=== PATIENT | female | born 1960 | race Caucasian/White ===

== ENCOUNTER 2017-09-20 13:37 | Observation (INO) | payer OTHER ==
[2017-09-20] MEDS ORDERED: Ketorolac INJ* 30 MG/ML 1 ML VIAL IV ONE (13:49)
[2017-09-20] MEDS ORDERED: NS 0.9% 1000 ML* 1,000 ML IV ONE (13:49)
[2017-09-20 15:11] LABS: ABS Basophils 0 10^3/ul (0-0.2); ABS Eosinophils 0.1 10^3/ul (0-0.6); ABS Lymphocytes 1.5 10^3/ul (1.0-4.8); ABS Monocytes 0.2 10^3/ul (0-0.8); ABS Neutrophils 3.1 10^3/ul (1.5-7.7); ABS Nucleated RBC 0 10^3/ul; Eosinophil % 2.2 % (0-6); Hematocrit 41 % (35-47); Hemoglobin 13.8 g/dl (12.0-16.0); Lymphocyte % 30.5 % (25-47); Mean Corpuscular HGB Conc 34 g/dl (31-36); Mean Corpuscular Hemoglobin 30 pg (27-31); Mean Corpuscular Volume 89 fL (80-97); Mean Platelet Volume 7.4 um3 (7.4-10.4); Nucleated Red Blood Cells % 0; Platelet Count 185 10^3/ul (150-450); Red Blood Count 4.59 10^6/ul (4.0-5.4); Red Cell Distribution Width 14 % (10.5-15)
[2017-09-20 15:48] LABS: EGFR Non-African American 58.2 (>60)
[2017-09-20 15:50] LABS: INR 0.92 (0.77-1.02)
[2017-09-20 18:10] LABS: Urine Appearance Clear; Urine Blood Negative (Negative); Urine Color Straw; Urine Ketones Negative (Negative); Urine Protein Negative (Negative); Urine Specific Gravity 1.013 (1.010-1.030); Urine Urobilinogen Negative (Negative)
[2017-09-20] MEDS ORDERED: KCL 20 MEQ/100 ML IVPREMIX* 20 MEQ/100 ML BAG IV ONE (18:42)
[2017-09-20] MEDS ORDERED: Morphine INJ* 2 MG/ML 1 ML CARPUJECT IV PRN (19:10)
[2017-09-20] MEDS ORDERED: Acetaminophen TAB* 325 MG PO PRN (19:10)
--- NOTE | 2017-09-20 19:14 | ED ---
Ky Kennedy Stephanie, scribed for Vern Patel on 09/20/17 at 1701 . Back Pain - HPI Summary HPI Summary: The pt is a 57 y/o F presenting to the ED with c/o R flank pain that began on . Symptoms include lower back pain and cough. She denies hematuria. Her pain is rated as a 3 in severity. - History of Current Complaint Chief Complaint: EDFlankPain Stated Complaint: FLANK PAIN-DR SENT KIDNEY STONES Time Seen by Provider: 09/20/17 16:43 Hx Obtained From: Patient Hx Last Menstrual Period: 07/13/14 Onset/Duration: Sudden Onset, Lasting Days - 2, Still Present Onset/Duration: Started Days Ago - 2, Still Present Timing: Constant Back Pain Location: Is Discrete @ - R flank Severity Currently: Mild Pain Intensity: 4 Pain Scale Used: 0-10 Numeric Aggravating Symptom(s): Movement Alleviating Symptom(s): Rest Associated Signs And Symptoms: Positive: Flank Pain, Other - back pain, cough - Allergies/Home Medications Allergies/Adverse Reactions: Allergies Allergy/AdvReac Type Severity Reaction Status Date / Time No Known Allergies Allergy Verified 09/01/15 12:44 Home Medications: Home Medications NK [No Home Medications Reported] 09/20/17 [History Confirmed 09/20/17] PMH/Surg Hx/FS Hx/Imm Hx Sensory History: Denies: Hx Legally Blind EENT History: Denies: Hx Deafness - Surgical History Surgery Procedure, Year, and Place: x2; tubal ligation; lisa Infectious Disease History: No Infectious Disease History: Reports: Hx Shingles Denies: Hx Clostridium Difficile, Hx Hepatitis, Hx Human Immunodeficiency Virus (HIV), Hx of Known/Suspected MRSA, Hx Tuberculosis, Hx Known/Suspected VRE , Hx Known/Suspected VRSA, History Other Infectious Disease, Traveled Outside the [place] in Last 30 Days - Family History Known Family History: Negative: Renal Disease - Social History Occupation: Employed Full-time Lives: With Family Alcohol Use: Weekly Alcohol Amount: once weekly Hx Substance Use: No Substance Use Type: Reports: None Hx Tobacco Use: No Smoking Status (MU): Never Smoked Tobacco Have You Smoked in the Last Year: No Review of Systems Negative: Fever Positive: Cough Positive: flank pain. Negative: hematuria Positive: Other - back pain All Other Systems Reviewed And Are Negative: Yes Physical Exam - Summary Physical Exam Summary: Appearance: Well appearing, no pain distress Skin: warm, dry, reflects adequate perfusion Head/face: normal Eyes: EOMI, OLIVIER ENT: normal Neck: supple, non-tender Respiratory: CTA, breath sounds present Cardiovascular: RRR, pulses symmetrical Abdomen: RUQ tenderness, soft Bowel: present Musculoskeletal: normal, strength/ROM intact Neuro: normal, sensory motor intact, A&Ox3 Triage Information Reviewed: Yes Vital Signs On Initial Exam: Initial Vitals Temp Pulse Resp BP Pulse Ox 98.2 F 77 16 149/83 99 09/20/17 13:40 09/20/17 13:40 09/20/17 13:40 09/20/17 13:40 09/20/17 13:40 Vital Signs Reviewed: Yes Diagnostics - Vital Signs Vital Signs Temp Pulse Resp BP Pulse Ox 09/20/17 16:03 97.6 F 64 16 157/71 100 09/20/17 13:40 98.2 F 77 16 149/83 99 - Laboratory Lab Results: Lab Results 09/20/17 09/20/17 09/20/17 Range/Units 14:54 14:54 14:54 WBC 5.0 (3.5-10.8) 10^3/ul RBC 4.59 (4.0-5.4) 10^6/ul Hgb 13.8 (12.0-16.0) g/dl Hct 41 (35-47) % MCV 89 (80-97) fL MCH 30 (27-31) pg MCHC 34 (31-36) g/dl RDW 14 (10.5-15) % Plt Count 185 (150-450) 10^3/ul MPV 7.4 (7.4-10.4) um3 Neut % (Auto) 62.0 (38-83) % Lymph % (Auto) 30.5 (25-47) % Rankin % (Auto) 4.3 (0-7) % Eos % (Auto) 2.2 (0-6) % Baso % (Auto) 1.0 (0-2) % Absolute Neuts (auto) 3.1 (1.5-7.7) 10^3/ul Absolute Lymphs (auto) 1.5 (1.0-4.8) 10^3/ul Absolute Monos (auto) 0.2 (0-0.8) 10^3/ul Absolute Eos (auto) 0.1 (0-0.6) 10^3/ul Absolute Basos (auto) 0 (0-0.2) 10^3/ul Absolute Nucleated RBC 0 10^3/ul Nucleated RBC % 0 INR (Anticoag Therapy) (0.77-1.02) Sodium 145 (139-145) mmol/L Potassium 3.2 L (3.5-5.0) mmol/L Chloride 107 (101-111) mmol/L Carbon Dioxide 29 (22-32) mmol/L Anion Gap 9 (2-11) mmol/L BUN 18 (6-24) mg/dL Creatinine 0.99 H (0.51-0.95) mg/dL Est GFR ( Amer) 74.9 (>60) Est GFR (Non-Af Amer) 58.2 (>60) BUN/Creatinine Ratio 18.2 (8-20) Glucose 113 H (70-100) mg/dL Lactic Acid 1.0 (0.5-2.0) mmol/L Calcium 9.2 (8.6-10.3) mg/dL Total Bilirubin 0.50 (0.2-1.0) mg/dL AST 21 (13-39) U/L ALT 20 (7-52) U/L Alkaline Phosphatase 72 (34-104) U/L C-Reactive Protein 5.22 H (< 5.00) mg/L Total Protein 7.0 (6.4-8.9) g/dL Albumin 4.2 (3.2-5.2) g/dL Globulin 2.8 (2-4) g/dL Albumin/Globulin Ratio 1.5 (1-3) 09/20/17 Range/Units 14:54 WBC (3.5-10.8) 10^3/ul RBC (4.0-5.4) 10^6/ul Hgb (12.0-16.0) g/dl Hct (35-47) % MCV (80-97) fL MCH (27-31) pg MCHC (31-36) g/dl RDW (10.5-15) % Plt Count (150-450) 10^3/ul MPV (7.4-10.4) um3 Neut % (Auto) (38-83) % Lymph % (Auto) (25-47) % Rankin % (Auto) (0-7) % Eos % (Auto) (0-6) % Baso % (Auto) (0-2) % Absolute Neuts (auto) (1.5-7.7) 10^3/ul Absolute Lymphs (auto) (1.0-4.8) 10^3/ul Absolute Monos (auto) (0-0.8) 10^3/ul Absolute Eos (auto) (0-0.6) 10^3/ul Absolute Basos (auto) (0-0.2) 10^3/ul Absolute Nucleated RBC 10^3/ul Nucleated RBC % INR (Anticoag Therapy) 0.92 (0.77-1.02) Sodium (139-145) mmol/L Potassium (3.5-5.0) mmol/L Chloride (101-111) mmol/L Carbon Dioxide (22-32) mmol/L Anion Gap (2-11) mmol/L BUN (6-24) mg/dL Creatinine (0.51-0.95) mg/dL Est GFR ( Amer) (>60) Est GFR (Non-Af Amer) (>60) BUN/Creatinine Ratio (8-20) Glucose (70-100) mg/dL Lactic Acid (0.5-2.0) mmol/L Calcium (8.6-10.3) mg/dL Total Bilirubin (0.2-1.0) mg/dL AST (13-39) U/L ALT (7-52) U/L Alkaline Phosphatase (34-104) U/L C-Reactive Protein (< 5.00) mg/L Total Protein (6.4-8.9) g/dL Albumin (3.2-5.2) g/dL Globulin (2-4) g/dL Albumin/Globulin Ratio (1-3) Result Diagrams: 09/20/17 14:54 09/20/17 14:54 Lab Statement: Any lab studies that have been ordered have been reviewed, and results considered in the medical decision making process. Back Pain Course/Dx - Course Course Of Treatment: The pt is a 57 y/o F presenting to the ED with c/o R flank pain that began on 09/20/17. Symptoms include lower back pain and cough. She denies hematuria. Her pain is rated as a 3 in severity. At 18:30, ED physician spoke to Dr. Perales wants the pt to be admitted to the hospital. Dr. Orta accepted the pt for admission. - Diagnoses Differential Diagnosis/HQI/PQRI: Positive: Renal Colic, Sprain, Other - uti Provider Diagnoses: Renal calculi - Provider Notifications Discussed Care Of Patient With: Pratik Perales Time Discussed With Above Provider: 18:36 Instructed by Provider To: Admit As Inpatient Discharge - Sign-Out/Discharge Documenting (check all that apply): Discharge/Admit/Transfer - admit - Discharge Plan Condition: Stable Disposition: ADMITTED TO [facility] Referrals: Florentino Mayorga MD [Primary Care Provider] - - Billing Disposition and Condition Condition: STABLE [place] [place] The documentation as recorded by the Ky robles Stephanie accurately reflects the service I personally performed and the decisions made by , Vern Patel.
[2017-09-20] MEDS ORDERED: NS 0.9% 1000 ML* 1,000 ML IV SCH (19:15)
[2017-09-20] MEDS ORDERED: Ondansetron INJ* 2 MG/ML VIAL IV PRN (19:17)
--- NOTE | 2017-09-20 20:39 | CONS ---
CC: Dr. Mayorga; Pratik Perales MD* UROLOGY CONSULTATION: DATE OF CONSULT: 09/20/17 REQUESTING PHYSICIAN: Dr. Patel in the emergency room. DIAGNOSES: 1. Calculus, right proximal ureter. 2. Right hydronephrosis. HISTORY OF PRESENT ILLNESS: Vandana Burgos is a 57-year-old lady who had some ill-defined back pain a few days ago, which then progressed to right flank pain and nausea. She went to her primary care doctor who correctly suspected calculus and was sent for a CT scan, which revealed a fairly large 1.2 to 1.3 cm (although to me it appears even larger probably between 1.5 and 2 cm) calculus at the right ureteropelvic junction with moderate right hydronephrosis and an additional nonobstructing left renal calculus. PAST MEDICAL HISTORY: Unremarkable. Specifically, there is no history of diabetes or any other major systemic illness. PAST SURGICAL HISTORY: Significant for cholecystectomy. MEDICATIONS ON ADMISSION: None. ALLERGIES: No known drug allergies. FAMILY HISTORY: Negative for kidney stones. REVIEW OF SYSTEMS: She denies any chest pain or shortness of breath. There is no system complaints related to the neurologic, vascular, or cardiovascular systems. PHYSICAL EXAMINATION: Reveals a pleasant healthy comfortable-appearing middle- aged lady. Blood pressure is 157/74, pulse 64 per minute, oxygen saturation 100 % on room air, temperature 97.6. Cardiovascular Exam: Regular rate and rhythm. S1, S2. Lungs are clear bilaterally. Abdomen is soft with very mild right flank tenderness. LABORATORY DATA: Review of labs revealed a white count of 5.0, hemoglobin and hematocrit are 13.8 and 41 with a platelet count of 185,000. Sodium is 145, potassium is low at 3.2, BUN and creatinine are 18 and 0.99, glucose is 113. Urinalysis is essentially negative with no evidence of blood, white blood cells , or bacteria. DIAGNOSTIC STUDIES: I reviewed the CT scan, which to me appears to have a 1.5 to 2 cm calculus at the right ureteropelvic junction with moderate right hydronephrosis and an additional nonobstructing left renal calculus. I had a detailed discussion with Vandana Burgos regarding the large right proximal ureteral calculus and explained the procedure of right stent insertion to be followed at some point in the near future as an outpatient by shockwave lithotripsy. I also explained that because of the very large size of the calculus, it may be impossible to place a right-sided stent in which case she would require a temporary right nephrostomy tube insertion to be followed by lithotripsy. All her questions were answered. Since the patient has eaten lunch this afternoon, the plan is to try to do this early tomorrow morning on 09/21/17. PLAN: Urgent right stent insertion in a.m., 09/21/17, to be followed as outpatient by shockwave lithotripsy. [id number]/[facility] #: [id number] MTDSumaya
[2017-09-20] MEDS ORDERED: Potassium Chloride LIQUID* 20 MEQ PACKET ONE (20:56)
--- NOTE | 2017-09-20 20:56 | HP ---
CC: Dr. Mayorga; Dr. Perales* HISTORY AND PHYSICAL: DATE OF ADMISSION: 09/20/17 PRIMARY CARE PROVIDER: Dr. Mayorga. CHIEF COMPLAINT: Right flank pain. HISTORY OF PRESENT ILLNESS: Vandana Burgos is a 57-year-old female with no significant past medical history who has had problems with lower back pain for quite sometime, but in the past 24 hours it has been more severe. She went to see Dr. Mayorga in the morning and was ordered a CT scan of the abdomen, which showed right-sided hydronephrosis and 1.2 cm ureteral stone at the UPJ junction. The patient is going to be admitted to the hospital for observation with plan for stent placement and cystoscopy in the morning. PAST MEDICAL HISTORY: 1. x2. 2. Status post cholecystectomy. 3. Tubal ligation. MEDICATIONS: None. ALLERGIES: No known drug allergies. FAMILY HISTORY: Positive for father with diabetes and hypertension. Mother who of complication of COPD. SOCIAL HISTORY: The patient denies any tobacco or drug use. She drinks occasional glass of wine. Her surrogate decision maker is her . REVIEW OF SYSTEMS: Please see history of present illness. All the remaining 12 systems were reviewed with the patient and were otherwise negative. PHYSICAL EXAMINATION GENERAL: The patient is a very pleasant 57-year-old female, who is in no acute distress. Alert, awake, and oriented x3. VITAL SIGNS: Blood pressure of 157/71, heart rate of 64 and regular, respiratory rate 16, oxygen saturation 100% on room air, temperature 97.6. HEENT: Head atraumatic, normocephalic. Eyes: Pupils are equal and reactive to light and accommodation. Oropharynx clear. Mucosa moist. NECK: Supple. No JVD. No bruits bilaterally. RESPIRATORY: Clear to auscultation bilaterally. CARDIOVASCULAR: Regular rate and rhythm. No murmur. ABDOMEN: Soft, nontender. Bowel sounds present in all 4 quadrants. BACK: On evaluation of the back, the patient has mild right CVA tenderness. EXTREMITIES: There is no edema. Pulses +2 bilaterally. No clubbing or cyanosis. SKIN: On skin evaluation, there are no rashes or ecchymotic areas noted. PSYCHIATRIC EVALUATION: The patient is pleasant, cooperative with evaluation, oriented x3. LABORATORY DATA: White blood cell count of 5.0, hemoglobin of 13.8, hematocrit 41, platelets of 185,000. Sodium of 145, potassium of 3.2, chloride 107, carbon dioxide 29, BUN 18, creatinine 0.99. Liver function tests were unremarkable. C- reactive protein of 5.2, TSH was last reported in June and was 2.2. Urinalysis was unremarkable. Abdomen and pelvis CT. Impression: "Bilateral nephrolithiasis including 1.2 cm right UPJ stone with moderate hydronephrosis. Scattered diverticuli without pericolic inflammatory changes." ASSESSMENT AND PLAN: 1. Right-sided hydronephrosis with 1.2 cm stone at the UPJ junction. The patient is going to be placed on n.p.o. diet as per Dr. Perales's recommendation and likely will have a cystoscopy in the morning. I will place the patient on intravenous fluids. She is also going to receive Rocephin prophylactically, although her urinalysis did not show an infection. 2. For DVT prophylaxis, the patient is low risk, is ambulatory. 3. The patient's code status is full and her surrogate is her . TIME SPENT: Approximately 55 minutes were spent on admission of the patient, more than half that time was spent [id number] with the patient during the interview and physical exam. [id number]/[facility] #: [id number] [facility]ITAL[facility]
[2017-09-20] MEDS ORDERED: cefTRIAXone(*) 2 GM in NS 0.9% 100 ML* 100 ML IVPB SCH (21:00)
[2017-09-20] MEDS ORDERED: Potassium Chloride LIQUID* 20 MEQ PACKET PO ONE (21:03)
[2017-09-21] MEDS ORDERED: Iohexol 180 (CONTRAST) 10 ML SDV IV ONE (06:29)
[2017-09-21] MEDS ORDERED: Propofol* 10 MG/ML 20 ML BTL IV PUSH ONE (06:37)
[2017-09-21] MEDS ORDERED: Ondansetron INJ* 2 MG/ML VIAL ONE (06:37)
[2017-09-21] MEDS ORDERED: fentaNYL* 50 MCG/ML 2 ML VIAL (100 MCG VIAL) ONE (06:37)
[2017-09-21] MEDS ORDERED: Dexamethasone IV* 4 MG/ML 1 ML (4 MG) ONE (06:37)
[2017-09-21] MEDS ORDERED: Lidocaine 2% PF * 5 ML VIAL ONE (06:37)
[2017-09-21] MEDS ORDERED: Ketorolac INJ* 30 MG/ML 1 ML VIAL ONE (06:37)
[2017-09-21] MEDS ORDERED: Midazolam* 1 MG/ML 5 ML VIAL (5 MG) ONE (06:37)
[2017-09-21] MEDS ORDERED: Buffered Lidocaine 0.9% SYRIN* 5 ML/SYR SYRINGE INTRADERM ONE (06:51)
[2017-09-21] MEDS ORDERED: Famotidine TAB* 20 MG PO ONE (06:51)
[2017-09-21] MEDS ORDERED: Famotidine TAB* 20 MG ONE (06:53)
[2017-09-21] MEDS ORDERED: Gentamicin ADULT (*) 160 MG in NS 0.9% 100 ML* 100 ML IVPB ONE (07:15)
[2017-09-21] MEDS ORDERED: Naloxone* 0.4 MG/ML 1 ML VIAL IV PRN (07:36)
[2017-09-21] MEDS ORDERED: fentaNYL* 50 MCG/ML 2 ML VIAL (100 MCG VIAL) IV PRN (07:36)
[2017-09-21] MEDS ORDERED: Ondansetron INJ* 2 MG/ML VIAL IV PRN (07:36)
--- NOTE | 2017-09-21 08:09 | RAD ---
CPT II Codes: G9500 INDICATION: Right-sided obstructive uropathy TECHNIQUE: Intraoperative fluoroscopy was provided during retrograde pyelography and ureteral stent placement. FINDINGS: 8 spot films depict retrograde pyelography demonstrating a widely dilated right collecting system and proximal ureter. Corresponding to the previous day CT imaging there is a large calculus at the proximal right ureter. Final images show an anatomically aligned right ureteral stent. Fluoroscopy time: 42 seconds IMPRESSION: As above.
[2017-09-21 08:36] LABS: Hematocrit 37 % (35-47); Hemoglobin 12.7 g/dl (12.0-16.0); Mean Corpuscular HGB Conc 34 g/dl (31-36); Mean Corpuscular Hemoglobin 30 pg (27-31); Mean Corpuscular Volume 88 fL (80-97); Red Cell Distribution Width 14 % (10.5-15); White Blood Count 5.2 10^3/ul (3.5-10.8)
[2017-09-21 08:44] LABS: EGFR Non-African American 71.4 (>60)
[2017-09-21] MEDS ORDERED: Potassium Chlor TAB* 20 MEQ TAB.ER PO SCH (09:00)
[2017-09-21 09:11] LABS: ABS Basophils 0 10^3/ul (0-0.2); ABS Eosinophils 0.2 10^3/ul (0-0.6); ABS Lymphocytes 2.1 10^3/ul (1.0-4.8); ABS Monocytes 0.3 10^3/ul (0-0.8); ABS Neutrophils 2.7 10^3/ul (1.5-7.7); ABS Nucleated RBC 0 10^3/ul; Eosinophil % 3.2 % (0-6); Lymphocyte % 39.7 % (25-47); Mean Platelet Volume 7.9 um3 (7.4-10.4); Nucleated Red Blood Cells % 0.1; Platelet Count 142 10^3/ul (150-450)
--- NOTE | 2017-09-21 10:52 | OP ---
CC: Florentino Mayorga MD; Junior Perales MD* OPERATIVE REPORT: DATE OF OPERATION: 09/21/17 - Inpatient, room 452-01. DATE OF : 64 SURGEON: Pratik Perales MD ANESTHESIA: General. ANESTHESIOLOGIST: Dr. Fischer. PRE-OP DIAGNOSES: 1. Right hydronephrosis. 2. Large calculus, right proximal ureter. POST-OP DIAGNOSES: 1. Right hydronephrosis. 2. Large calculus, right proximal ureter. SURGICAL PROCEDURE: Cystoscopy, right retrograde pyelogram, right ureteral calculus manipulation, and right stent insertion. COMPLICATIONS: None. STENTS USED: 6-Burmese stent right ureter. POST-OP CONDITION: Stable. OPERATIVE FINDINGS: Large calculus impacted in proximal right ureter with complete obstruction. INDICATIONS: Vadnana Burgos is a 57-year-old lady who was evaluated in the emergency room yesterday for a large calculus in the right proximal ureter. She is being brought in for urgent right stent insertion to be followed at some point in the near future by shockwave lithotripsy. DESCRIPTION OF PROCEDURE: After induction of general anesthesia, patient was placed in dorsal lithotomy position. Sequential compression devices were in place and functioning. Initial cystoscopy revealed a normal-appearing bladder. There were clear efflux of urine noted from the left orifice. There was no efflux noted from the right orifice, suggesting a complete obstruction. Hydrophilic glidewire was introduced into the right ureter and advanced up to the level of the calculus, which could be easily seen on fluoroscopy. However, the calculus was completely impacted and multiple attempts at trying to get the wire beyond the calculus were not successful. I advanced the open ended catheter to the level of the calculus to try and carefully manipulate the calculus with some irrigation of sterile water and was finally able to get the wire just beyond the calculus and into the proximal collecting system. Once this was done, a 6-Burmese stent was introduced and positioned under fluoroscopy with good proximal and distal positioning obtained. A retrograde pyelogram done prior to completing this had revealed dilated collecting system with no evidence of extravasation. The bladder was emptied. Patient tolerated the procedure satisfactorily and was transferred back to the recovery area in stable condition. [id number]/[facility] #: [id number] [facility]
[2017-09-21 12:33] VITALS: BP 141/67
--- NOTE | 2017-09-21 15:11 | DS ---
CC: Dr. Mayorga; Dr. Perales DISCHARGE SUMMARY: DATE OF ADMISSION: 09/20/17 DATE OF DISCHARGE: 09/21/17 PRIMARY CARE PROVIDER: Dr. Mayorga. DISCHARGE DIAGNOSES: Right-sided hydronephrosis due to right ureteral stone, status post cystoscopy and stent placement by Dr. Perales on 09/21/17. MEDICATIONS AT DISCHARGE: Include cefdinir 300 mg p.o. b.i.d. for a total of 5 days. LABORATORY DATA AND STUDIES PERFORMED DURING THE HOSPITAL STAY: Included: On 09/21/17, white blood cell count of 5.2, hemoglobin of 12.7, hematocrit of 37, and platelets of 142. Sodium was 140, potassium of 3.9, chloride 108, carbon dioxide 27, BUN 17, creatinine 0.83. Urinalysis was unremarkable at admission. CT of abdomen and pelvis obtained on 09/20/17, impression: "Bilateral nephrolithiasis including 1.2- cm right UPJ stone with moderate hydronephrosis. Scattered diverticula of the colon without pericolon ic inflammatory change." HOSPITALIZATION COURSE: Vandana Burgos is a 57-year-old female with no significant past medical hi story, who presented to the hospital complaining of right flank abdominal pain with CT obtained as an outpatient showing right-sided hydronephrosis due to ureteral stone obstruction. Dr. Perales saw the patient in the emergency room and recommended a cystoscopy and stent placement in the morning. The lars mcclendon was admitted for overnight observation. Her discomfort in the right flank was mild. In the mo rning on 09/21/17, she underwent right-sided ureteral stent placement and cystoscopy by Dr. Perales. A fter the cystoscopy, she had mild right flank discomfort and as per discussion with Dr. Perales, she wa s ready to go home. She is going to be prescribed 5 days' worth of antibiotics to go home with as pe r Dr. Perales's recommendation. At discharge, the patient is recommended to follow up [facility] Dr[facility] Perales [facility]. PHYSICAL EXAMINATION: At discharge is unchanged from admission. [id number]/[facility] #: [id number]
== END 2017-09-21 13:10 | disposition home or self-care (01) ==
LOC: ED 13:37 → MEDTELE 19:10
PROVIDERS: ADMIT Internal Medicine; ATTEND Internal Medicine
PROC: 0T768DZ Dilation of Right Ureter with Intraluminal Device, Via Natural or Artificial Opening Endoscopic (ICD-10-PCS; principal; 2017-09-20)
PROC: 0WHR8YZ Insertion of Other Device into Genitourinary Tract, Via Natural or Artificial Opening Endoscopic (ICD-10-PCS; 2017-09-20)
PROC: BT1DZZZ Fluoroscopy of Right Kidney, Ureter and Bladder (ICD-10-PCS; 2017-09-20)
DX: N13.2 Hydronephrosis with renal and ureteral calculous obstruction (principal); R10.9 Unspecified abdominal pain
CPT/HCPCS: 36415; 74420; 80048; 80053; 81003; 83605; 85025; 85610; 86140; 87040; 99283; A9270-GY; C1876; G0378; J0696; J1100; J1580; J1885; J2250; J2405; J2704; J3010

== ENCOUNTER 2017-10-01 06:07 | Day surgery (SDC) | payer OTHER ==
[~2017-10-01 06:07] MED LIST: Buffered Lidocaine 0.9% SYRIN* 5 ML/SYR SYRINGE INTRADERM ONE
[2017-10-01] MEDS ORDERED: cefTRIAXone(*) 2 GM ADDV.VIAL IVPB ONE ×2 (06:13→06:55)
[2017-10-01] MEDS ORDERED: Buffered Lidocaine 0.9% SYRIN* 5 ML/SYR SYRINGE ONE (06:55)
[2017-10-01] MEDS ORDERED: fentaNYL* 50 MCG/ML 2 ML VIAL (100 MCG VIAL) ONE (07:52)
[2017-10-01] MEDS ORDERED: Midazolam* 1 MG/ML 2 ML VIAL (2 MG) ONE (07:53)
[2017-10-01] MEDS ORDERED: Dexamethasone IV* 4 MG/ML 1 ML (4 MG) ONE (08:04)
[2017-10-01] MEDS ORDERED: Lidocaine 2% PF * 5 ML VIAL ONE (08:04)
[2017-10-01] MEDS ORDERED: Propofol* 10 MG/ML 20 ML BTL IV PUSH ONE (08:04)
[2017-10-01] MEDS ORDERED: Ondansetron INJ* 2 MG/ML VIAL ONE (08:04)
--- NOTE | 2017-10-01 08:12 | RAD ---
INDICATION: Shockwave lithotripsy. COMPARISON: Comparison is made with a prior CT of the abdomen and pelvis from September 20, 2017. TECHNIQUE: Frontal supine films of the abdomen were obtained. FINDINGS: The small bowel and colon appear nondistended. There is a ureteral stent on the right side which demonstrates normal course.. There is a large calculus measuring approximate 1.3 x 1.0 cm adjacent to the proximal portion of the stent catheter. There are is also a 0.4 cm calculus in the lower pole of the left kidney. IMPRESSION: 1. LARGE CALCULUS ADJACENT TO THE PROXIMAL PORTION OF THE RIGHT URETERAL STENT CATHETER NOTED ON THE PRIOR CT STUDY. 2. ADDITIONAL SMALL LEFT RENAL CALCULUS.
[2017-10-01] MEDS ORDERED: Naloxone* 0.4 MG/ML 1 ML VIAL IV PRN (08:21)
[2017-10-01] MEDS ORDERED: Acetaminophen TAB* 325 MG PO PRN (08:21)
[2017-10-01] MEDS ORDERED: DiMENhydriNATE IV* 50 MG/ML VIAL IV PUSH PRN (08:21)
[2017-10-01] MEDS ORDERED: PROCHLORPERAZINE INJ 5 MG/ML 2 ML VIAL IV PRN (08:21)
[2017-10-01] MEDS ORDERED: fentaNYL* 50 MCG/ML 2 ML VIAL (100 MCG VIAL) IV PRN (08:21)
[2017-10-01] MEDS ORDERED: Ondansetron INJ* 2 MG/ML VIAL IV PRN (08:21)
[2017-10-01 10:06] VITALS: BP 114/71
--- NOTE | 2017-10-01 13:59 | OP ---
CC: Dr. Mayorga * DATE OF OPERATION: 10/01/17 - SDS DATE OF : 64 SURGEON: Pratik Perales MD ANESTHESIOLOGIST: Dr. Marion. ANESTHESIA: General. PRE-OP DIAGNOSIS: Calculus, right proximal ureter. POST-OP DIAGNOSIS: Calculus, right proximal ureter. OPERATIVE PROCEDURE: Shockwave lithotripsy of calculus, right ureter. COMPLICATIONS: None. POSTOPERATIVE CONDITION: Stable. INDICATIONS: Vandana Burgos is a 57-year-old lady who had undergone urgent right stent insertion for a fairly large obstructing calculus in the right proximal ureter. She is now being brought in for shockwave lithotripsy because of the large size of the calculus. I have explained to her that she may require multiple procedures including either repeat lithotripsy or ureteroscopy with laser lithotripsy in an effort to completely fragment this calculus. DESCRIPTION OF PROCEDURE: After induction of general anesthesia, the patient was placed on lithotripsy table in supine position. The calculus in the proximal right ureter alongside the stent was identified using fluoroscopy. Shockwave lithotripsy was commenced at a rate of 90 shocks per minute. Periodic imaging revealed good localization and a total of 3000 shocks were administered. Because of the location of the calculus in the ureter alongside the stent, it is hard to correctly assess the degree of fragmentation and a KUB x-ray will be obtained later on to try and better assess this. The patient tolerated the procedure satisfactorily and was transferred back to the recovery area in stable condition. [id number]/[facility] #: [id number] MTDD
--- NOTE | 2017-10-01 14:13 | RAD ---
INDICATION: Status post lithotripsy COMPARISON: October 01, 2017 TECHNIQUE: A single view of the abdomen is submitted. FINDINGS: Bones: There are no acute bony findings. Soft tissues: The soft tissues appear normal. The psoas margins are sharp. Bowel gas pattern: Normal Calcifications: There are is right ureteral calculus. This calculus may be partially fragmented but appears little changed. There is also left-sided nephrolithiasis appearing unchanged. Other: There is a right ureteral stent in expected position IMPRESSION: BILATERAL UROLITHIASIS
== END 2017-10-01 10:15 | disposition home or self-care (01) ==
LOC: OR 06:07
PROVIDERS: ATTEND Urology
DX: N20.1 Calculus of ureter (principal)
CPT/HCPCS: 74018; J0696; J1100; J2250; J2405; J2704; J3010

== ENCOUNTER 2017-10-10 08:01 | Day surgery (SDC) | payer OTHER ==
[~2017-10-10 08:01] MED LIST changes: +Dexamethasone IV* 4 MG/ML 1 ML (4 MG) IV SLOW PU ONE; +Famotidine IV* 10 MG/ML 2 ML (20 mg) IV ONE; +Gentamicin ADULT (*) 160 MG in NS 0.9% 100 ML* 100 ML IVPB ONE; +cefTRIAXone(*) 2 GM in NS 0.9% 100 ML* 100 ML IVPB ONE
[2017-10-10] MEDS ORDERED: Buffered Lidocaine 0.9% SYRIN* 5 ML/SYR SYRINGE ONE (08:16)
[2017-10-10] MEDS ORDERED: Famotidine IV* 10 MG/ML 2 ML (20 mg) ONE (08:16)
[2017-10-10] MEDS ORDERED: Dexamethasone IV* 4 MG/ML 1 ML (4 MG) ONE (08:16)
[2017-10-10] MEDS ORDERED: Iohexol 180 (CONTRAST) 10 ML SDV IV ONE (10:05)
[2017-10-10] MEDS ORDERED: Ondansetron INJ* 2 MG/ML VIAL IV PRN (10:14)
[2017-10-10] MEDS ORDERED: Naloxone* 0.4 MG/ML 1 ML VIAL IV PRN (10:14)
[2017-10-10] MEDS ORDERED: oxyCODONE/Acetamin 5/325 MG* TAB PO PRN (10:14)
[2017-10-10] MEDS ORDERED: HYDROcodone/ACETAMIN 5-325 MG* 1 TAB PO PRN (10:14)
[2017-10-10] MEDS ORDERED: Ketorolac INJ* 30 MG/ML 1 ML VIAL IV PRN (10:14)
[2017-10-10] MEDS ORDERED: fentaNYL* 50 MCG/ML 2 ML VIAL (100 MCG VIAL) IV PRN (10:14)
[2017-10-10] MEDS ORDERED: Midazolam* 1 MG/ML 5 ML VIAL (5 MG) ONE (10:20)
[2017-10-10] MEDS ORDERED: fentaNYL* 50 MCG/ML 2 ML VIAL (100 MCG VIAL) ONE ×2 (10:20→11:00)
[2017-10-10] MEDS ORDERED: Propofol* 10 MG/ML 20 ML BTL IV PUSH ONE (10:21)
[2017-10-10] MEDS ORDERED: Lidocaine 2% PF * 5 ML VIAL ONE (10:21)
[2017-10-10] MEDS ORDERED: PROCHLORPERAZINE INJ 5 MG/ML 2 ML VIAL ONE (11:16)
[2017-10-10] MEDS ORDERED: Furosemide IV* 10 MG/ML 2 ML VIAL (20 MG) ONE (11:26)
--- NOTE | 2017-10-10 12:44 | RAD ---
INDICATION: Right ureteral stent placement COMPARISONS: September 21, 2017 TECHNIQUE: Fluoroscopy was provided for a retrograde pyelogram and stent placement. Total fluoroscopy time is: 16 seconds FINDINGS: Contrast is noted within the renal collecting system which appears dilated. A ureteral stent is noted. IMPRESSION: FLUOROSCOPY WAS PROVIDED FOR A RETROGRADE PYELOGRAM AND STENT PLACEMENT CPT II Codes: G9500
[2017-10-10] MEDS ORDERED: Ketorolac INJ* 30 MG/ML 1 ML VIAL ONE (13:14)
[2017-10-10 14:11] VITALS: BP 132/80
--- NOTE | 2017-10-10 14:54 | RAD ---
INDICATION: Urolithiasis COMPARISON: October 02, 2017 TECHNIQUE: A single view of the abdomen is submitted. FINDINGS: Bones: There are no acute bony findings. Soft tissues: The soft tissues appear normal. The psoas margins are sharp. Bowel gas pattern: Normal Calcifications: There are multiple consultations projecting over the proximal right ureter. The calcific mass appears to have decreased. The right ureteral stent is unchanged in position. Other: None IMPRESSION: RIGHT URETEROLITHIASIS PERHAPS WITH INTERVAL FRAGMENTATION. RIGHT URETERAL STENT.
--- NOTE | 2017-10-11 09:32 | OP ---
CC: Dr. Mayorga * DATE OF OPERATION: 10/10/17 - [facility] DATE OF : 64 SURGEON: Pratik Perales MD ANESTHESIOLOGIST: Dr. Mancia. ANESTHESIA: General. PRE-OP DIAGNOSES: 1. Right hydronephrosis. 2. Large calculus, right proximal ureter (just below ureteropelvic junction). POST-OP DIAGNOSIS: OPERATIVE PROCEDURE: Cystoscopy, right stent removal, right retrograde pyelogram, right ureteroscopy, laser lithotripsy of calculus and removal of calculus fragments, right pyeloscopy, and right stent insertion. STENT USED: 8.5-Latvian 28 cm silicone stent, right ureter. OPERATIVE FINDINGS: Fairly large (1.5 to 2 cm) partially fragmented calculus impacted in proximal ureter just below right ureteropelvic junction with right hydronephrosis. COMPLICATIONS: None. INDICATIONS: Vandana Burgos is a 57-year-old lady who had undergone urgent right stent insertion because of a large obstructing calculus. She then underwent shockwave lithotripsy with only partial fragmentation of the calculus and is now being brought in for ureteroscopy. DESCRIPTION OF PROCEDURE: After induction of general anesthesia, the patient was placed in dorsal lithotomy position. Sequential compression devices were in place and functioning. Initial cystoscopy revealed normal-appearing bladder and the previously placed stent was removed. Retrograde pyelogram revealed right hydronephrosis and I could visualize the radiopaque calculus in the proximal ureter on fluoroscopy. A 6-Latvian semi-rigid ureteroscope was introduced and advanced under direct vision just below the ureteropelvic junction where a calculus was noted to be impacted into the wall of the ureter with partial fragmentation noted. Using a 550 micron holmium laser, the stone was carefully fragmented into multiple small fragments and all of the visible fragments were removed successfully from the proximal ureter into the bladder from which they were later retrieved. At the end of the procedure, there were still some remaining fragments, which I am hoping will eventually work their way out, but there were no sizeable fragments and the ureteroscope was easily advanced into the renal pelvis, which was dilated with dilated calyces, but no calculi noted in the renal pelvis or in the collecting system. Another injection of contrast was carried out to make sure there was no extravasation and none was noted. An 8.5-Latvian 28 cm silicone stent was positioned under fluoroscopy with good proximal and distal positioning obtained. Because of the large size of the calculus and the fact that it had been impacted in the proximal ureter, this certainly does put her at higher risk for a stricture in the residential and my plan would be to leave the stent in for at least 4 to 6 weeks to see if she can tolerate it. The patient tolerated the procedure satisfactorily and was transferred back to the recovery area in stable condition. [id number]/[facility] #: [id number] [facility]ITAL[facility]
== END 2017-10-10 14:28 | disposition home or self-care (01) ==
LOC: OR 08:01
PROVIDERS: ATTEND Urology
DX: N13.2 Hydronephrosis with renal and ureteral calculous obstruction (principal)
CPT/HCPCS: 74018; 74420; 82365; 88300; C1876; J0696; J0780; J1100; J1580; J1885; J1940; J2250; J2704; J3010

== ENCOUNTER 2017-12-24 13:06 | Day surgery (SDC) | payer OTHER ==
--- NOTE | 2017-12-18 06:28 | HP ---
CC: Dr. Mayorga * ADMITTING HISTORY AND PHYSICAL: DATE OF ADMISSION: 12/24/17 ADMITTING DIAGNOSES: 1. Calculi, right proximal ureter. 2. Right hydronephrosis. PLANNED PROCEDURE: Right ureteroscopy, laser lithotripsy, and stent insertion. SURGEON: Dr. Perales. ADMITTING HISTORY AND PHYSICAL: Vandana Burgos is a 57-year-old lady who I had originally evaluated in early September 2017 because of obstruction secondary to a large calculus impacted at the right ureteropelvic junction. She had undergone urgent stent insertion and had subsequently undergone shockwave lithotripsy and then ureteroscopy with laser lithotripsy because of residual fragments. She then underwent stent removal and I was hoping that all the remaining fragments would pass after the stent removal; however, she continues to have persistent calculus fragments in the proximal right ureter with moderate right hydronephrosis. She is now being brought in for repeat right ureteroscopy and laser lithotripsy and stent insertion. PAST MEDICAL HISTORY: Significant for renal calculi. PAST SURGICAL HISTORY: Significant for cholecystectomy, tubal ligation and C- section x2. MEDICATIONS ON ADMISSION: None. ALLERGIES: No known drug allergies. REVIEW OF SYSTEMS: She is otherwise in excellent health. There is no history of diabetes mellitus or any other major systemic illness. PHYSICAL EXAMINATION GENERAL: Reveals a pleasant, healthy-appearing middle age lady. VITAL SIGNS: Blood pressure is 120/80; pulse 60 per minute, regular; oxygen saturation 98% on room air; temperature 96.4. LUNGS: Clear bilaterally. CARDIOVASCULAR: Regular rate and rhythm. S1, S2. ABDOMEN: Soft with mild right flank tenderness. IMPRESSION: A 57-year-old lady with persistent calculus fragments in the right proximal ureter and right hydronephrosis. PLAN: Procedure is right ureteroscopy, possible laser and stent insertion. [id number]/[facility] #: [id number] MTDD
[~2017-12-24 13:06] MED LIST changes: -Dexamethasone IV* 4 MG/ML 1 ML (4 MG) IV SLOW PU ONE; -cefTRIAXone(*) 2 GM in NS 0.9% 100 ML* 100 ML IVPB ONE
[2017-12-24] MEDS ORDERED: Famotidine IV* 10 MG/ML 2 ML (20 mg) ONE (13:09)
[2017-12-24] MEDS ORDERED: cefTRIAXone(*) 2 GM ADDV.VIAL IVPB ONE (13:10)
[2017-12-24] MEDS ORDERED: Acetaminophen TAB* 325 MG PO PRN (13:27)
[2017-12-24] MEDS ORDERED: DiMENhydriNATE IV* 50 MG/ML VIAL IV PUSH PRN (13:27)
[2017-12-24] MEDS ORDERED: oxyCODONE TAB* 5 MG TAB PO PRN (13:27)
[2017-12-24] MEDS ORDERED: HYDROmorphone INJ* 0.5 MG/0.5 ML SYRINGE IV PRN (13:27)
[2017-12-24] MEDS ORDERED: Naloxone* 0.4 MG/ML 1 ML VIAL IV PRN (13:27)
[2017-12-24] MEDS ORDERED: Midazolam* 1 MG/ML 5 ML VIAL (5 MG) ONE (14:14)
[2017-12-24] MEDS ORDERED: fentaNYL* 50 MCG/ML 2 ML VIAL (100 MCG VIAL) ONE ×2 (14:14→15:56)
[2017-12-24] MEDS ORDERED: Iohexol 180 (CONTRAST) 10 ML SDV IV ONE (14:22)
[2017-12-24] MEDS ORDERED: Dexamethasone IV* 4 MG/ML 1 ML (4 MG) ONE (14:28)
[2017-12-24] MEDS ORDERED: Lidocaine 2% PF * 5 ML VIAL ONE (14:28)
[2017-12-24] MEDS ORDERED: Propofol* 10 MG/ML 20 ML BTL IV PUSH ONE (14:28)
[2017-12-24] MEDS ORDERED: Ondansetron INJ* 2 MG/ML VIAL ONE (15:18)
[2017-12-24] MEDS ORDERED: Ketorolac INJ* 30 MG/ML 1 ML VIAL ONE (16:40)
--- NOTE | 2017-12-24 17:35 | RAD ---
Indication: Right ureteral stent placement after right ureteroscopy and laser lithotripsy Fluoroscopic services provided for referring physician. Approximately 18 seconds of fluoroscopy time was used. 10 spot images were reviewed. There is placement of a right ureteral stent and wire in place in the right hydronephrotic kidney. IMPRESSION: Right hydronephrosis with placement of a right ureteral stent.
[2017-12-24 17:52] VITALS: BP 147/89
--- NOTE | 2017-12-24 18:26 | RAD ---
Indication: Right ureteral stent insertion Single view of the abdomen is reviewed. This placement of a right ureteral stent. Calcifications are noted in the distal right ureter. When compared to previous exam of December 17, 2017 ureteral stones in the pelvis are unchanged. Calcifications adjacent to the L3 transverse processes are not well demonstrated. IMPRESSION: Right ureteral stent is in place. Calcifications adjacent to the right L3 transverse process are not visualized well on the current study. There are several calcifications in the pelvis which are unchanged from previous exam.
--- NOTE | 2017-12-25 15:03 | OP ---
CC: Dr. Mayorga * DATE OF OPERATION: 12/24/17 - [facility] DATE OF : 64 SURGEON: Dr. Perales. ANESTHESIOLOGIST: Dr. Moran. ANESTHESIA: General. PRE-OP DIAGNOSES: 1. Right hydronephrosis. 2. Calculi, right ureteropelvic junction. 3. Partial right ureteropelvic junction obstruction. POST-OP DIAGNOSES: 1. Right hydronephrosis. 2. Calculi, right ureteropelvic junction. 3. Partial right ureteropelvic junction obstruction. OPERATIVE PROCEDURE: 1. Cystoscopy, right retrograde pyelogram, right ureteroscopy, right pyeloscopy , fragmentation and removal of right ureteral calculi. 2. Right ureteral balloon dilatation and right stent insertion. COMPLICATIONS: None. STENT USED: 8.5-Thai 28 cm silicone stent, right ureter. INDICATIONS: Vandana Burgos is a 57-year-old lady who had originally been evaluated about 2 to 3 months ago because of a large obstructing calculus at the ureteropelvic junction. She had previously been treated with shockwave and laser lithotripsy but on recent followup was noted to still have obstructing fragments in the area of the right ureteropelvic junction with right hydronephrosis. I suspect that she may have an element of narrowing at the ureteropelvic junction, which resulted in her not being able to pass the fragments and she is now being brought in for further evaluation and management. OPERATIVE FINDINGS: 1. Right hydronephrosis. 2. Calculi impacted at right ureteropelvic junction with edema and narrowing of ureteropelvic junction (probable partial right ureteropelvic junction obstruction). POSTOPERATIVE CONDITION: Stable. DESCRIPTION OF PROCEDURE: After induction of general anesthesia, the patient was placed in dorsal lithotomy position. Sequential compression devices were in place and functioning. Initial cystoscopy revealed a normal-appearing bladder. A guidewire was introduced into the right ureter. Retrograde pyelogram revealed right hydronephrosis with a dilated renal pelvis and a fairly narrow ureteropelvic junction. A 6-Thai semi-rigid ureteroscope was introduced and advanced under direct vision. The entire distal mid and proximal ureter were visualized and were normal. At the level of the ureteropelvic junction, I could see multiple calculi adherent to the mucosa with moderate inflammatory response. Using a 3-pronged grasper, these were successfully engaged and some of them were fragmented with the grasper and all of the sizable fragments were removed and sent for analysis. The ureteroscope was again advanced back to the level where the calculi had been adherent to the mucosa and I could not visualize any remaining calculi after multiple passes with the ureteroscope and extracting the calculi. The ureteroscope was then advanced into the renal pelvis and pyeloscopy was performed. The renal pelvis was dilated but I could not visualize any additional calculi in the renal pelvis or in the openings in the major calyces. The ureteroscope was carefully withdrawn under direct vision because of my suspicion that she has an element of partial ureteropelvic junction obstruction. Balloon dilatation of the entire uretero-pelvic junction and proximal ureter was successfully carried out under fluoroscopic monitoring. Once this was done, the balloon was removed and an 8.5- Thai 28 cm silicone stent was introduced and positioned under fluoroscopy with good proximal and distal positioning obtained. My plan is to leave the stent in for 4 to 6 weeks to allow for healing and dilatation of the ureteropelvic junction prior to doing the stent removal in the office. The patient tolerated the procedure satisfactorily and was transferred back to the recovery area in stable condition. [id number]/[facility] #: [id number] DEDE
== END 2017-12-24 18:15 | disposition home or self-care (01) ==
LOC: OR 13:06
PROVIDERS: ATTEND Urology
DX: N13.2 Hydronephrosis with renal and ureteral calculous obstruction (principal); Q62.11 Congenital occlusion of ureteropelvic junction
CPT/HCPCS: 74018; 74420; 82365; 88300; C1876; J0696; J1100; J1580; J1885; J2250; J2405; J2704; J3010

== ENCOUNTER 2018-04-15 13:52 | Day surgery (SDC) | payer OTHER ==
--- NOTE | 2018-04-12 19:52 | HP ---
CC: Dr. Mayorga; Dr. Perales ADMITTING HISTORY AND PHYSICAL: DATE OF ADMISSION: 04/15/18 ADMITTING DIAGNOSES: 1. Bilateral renal calculi. 2. Right hydronephrosis. PLANNED PROCEDURE: Right stent insertion and shock wave lithotripsy of right renal calculi (possibly to be followed in the near future by shock wave lithotripsy of the left renal calculus). SURGEON: Dr. Perales. HISTORY OF PRESENT ILLNESS: Vandana Burgos is a 57-year-old lady with a history of partial right u reteropelvic junction obstruction and recurrent right renal calculi. She had initially been evaluate d in August for large obstructing calculus and has subsequently undergone several procedures and was r ecently evaluated after some recurrence of right flank pain and was noted to have vunt-pc-[id number] ri ght hydronephrosis with some residual or recurrent stones in the lower pole of the right kidney. In addition, she has a 5-mm calculus in the left kidney. PAST MEDICAL HISTORY: Significant for renal calculi. MEDICATIONS ON ADMISSION: None. ALLERGIES: No known drug allergies. REVIEW OF SYSTEMS: She is otherwise in excellent health. There is no history of diabetes mellitus o r any other major systemic illness. PHYSICAL EXAMINATION GENERAL: Reveals a pleasant, healthy-appearing, middle-aged lady. VITAL SIGNS: Blood pressure is 120/80, pulse 75 per minute, temperature 96, oxygen saturation 98% on room air. LUNGS: Clear bilaterally. CARDIOVASCULAR: Regular rate and rhythm. S1, S2. ABDOMEN: Soft with mild right flank tenderness. IMPRESSION: A 57-year-old lady with partial right ureteropelvic junction obstruction and right carlos l calculi and also left renal calculus. PLAN: Planned procedure for 04/15/18 is right stent insertion and shock wake lithotripsy of right re nal calculi (possibly to be followed in the near future by shock wave lithotripsy of left renal calcu sindy). [id number]/[facility] #: [id number]
[~2018-04-15 13:52] MED LIST changes: +Acetaminophen TAB* 325 MG PO PRN; +DiMENhydriNATE IV* 50 MG/ML VIAL IV PUSH PRN; -Famotidine IV* 10 MG/ML 2 ML (20 mg) IV ONE; +HYDROcodone/ACETAMIN 5-325 MG* 1 TAB PO PRN; +Naloxone* 0.4 MG/ML 1 ML VIAL IV PRN; +Ondansetron INJ* 2 MG/ML VIAL IV PRN; +PROCHLORPERAZINE INJ 5 MG/ML 2 ML VIAL IV PRN; +diPHENhydraMINE IV* 50 MG/ML 1 ml VIAL (BENADRYL) IV PRN; +fentaNYL* 50 MCG/ML 2 ML VIAL (100 MCG VIAL) IV PRN
[2018-04-15] MEDS ORDERED: Buffered Lidocaine 0.9% SYRIN* 5 ML/SYR SYRINGE ONE (14:26)
[2018-04-15] MEDS ORDERED: fentaNYL* 50 MCG/ML 2 ML VIAL (100 MCG VIAL) ONE ×2 (17:10→18:04)
[2018-04-15] MEDS ORDERED: Midazolam* 1 MG/ML 2 ML VIAL (2 MG) ONE (17:10)
[2018-04-15] MEDS ORDERED: Iohexol 180 (CONTRAST) 10 ML SDV IV ONE (17:25)
[2018-04-15] MEDS ORDERED: cefTRIAXone(*) 2 GM ADDV.VIAL IVPB ONE (17:34)
[2018-04-15] MEDS ORDERED: Lidocaine 2% PF * 5 ML VIAL ONE (17:41)
[2018-04-15] MEDS ORDERED: Famotidine IV* 10 MG/ML 2 ML (20 mg) ONE (17:41)
[2018-04-15] MEDS ORDERED: Dexamethasone IV* 4 MG/ML 1 ML (4 MG) ONE (17:41)
[2018-04-15] MEDS ORDERED: Propofol* 10 MG/ML 20 ML BTL IV PUSH ONE (17:41)
[2018-04-15 19:42] VITALS: BP 135/89
--- NOTE | 2018-04-16 15:57 | OP ---
CC: Florentino Mayorga MD; Pratik Perales MD OPERATIVE SUMMARY: DATE OF OPERATION: 04/15/18 DATE OF : 64 SURGEON: Dr. Perales. ANESTHESIOLOGIST: Dr. Marion. ANESTHESIA: General. PRE-OP DIAGNOSES: 1. Right renal calculi. 2. Right hydronephrosis. 3. Partial right ureteropelvic junction obstruction. POST-OP DIAGNOSES: 1. Right renal calculi. 2. Right hydronephrosis. 3. Partial right ureteropelvic junction obstruction. OPERATIVE PROCEDURE: 1. Shockwave lithotripsy, right renal calculi. 2. Right retrograde and right stent insertion. COMPLICATIONS: None. STENT USED: 7-Belarusian stent, right ureter. POSTOPERATIVE CONDITION: Stable. OPERATIVE FINDINGS: 1. Right renal calculi. 2. Left renal calculus. 3. Mild to moderate right hydronephrosis with narrowing noted at right ureteropelvic junction. INDICATIONS: Vandana Burgos is a 57-year-old lady with a history of recurrent - persistent right r enal calculi and right hydronephrosis secondary to partial right ureteropelvic junction obstruction. DESCRIPTION OF PROCEDURE: After induction of general anesthesia, the patient was placed on the litho tripsy table in supine position. There was a cluster of stones in the lower pole of the right kidney , which was localized using fluoroscopy. Shockwave lithotripsy was commenced at a rate of 90 shocks p er minute. Periodic imaging revealed adequate localization. There was a pause in lithotripsy after 300 shocks for a few minutes to minimize any potential trauma to the kidney. A total of 1000 shocks were administered and good fragmentation was observed. Next, the patient was placed in dorsal lithotomy position and cystoscopy was performed. The bladder appeared unremarkable. A guidewire was introduced into the right ureter. Retrograde pyelogram revea led [id number]-[id number] fullness of the right collecting system with narrowing noted at the ureteropelvi c junction. A 7-Belarusian stent was introduced and positioned under fluoroscopy with good proximal and distal positioning obtained. The bladder was emptied. The patient has an additional calculus in the left kidney, which may require shockwave lithotripsy in the near future. [id number]/[facility] #: [id number]
== END 2018-04-15 19:45 | disposition home or self-care (01) ==
LOC: OR 13:52
PROVIDERS: ATTEND Urology
DX: N13.2 Hydronephrosis with renal and ureteral calculous obstruction (principal); Z87.442 Personal history of urinary calculi
CPT/HCPCS: C1876; J0696; J1100; J1580; J2250; J2704; J3010

== ENCOUNTER → 2018-05-13 08:56 | Day surgery (SDC) | payer OTHER ==
--- NOTE | 2018-04-30 20:23 | HP ---
HISTORY AND PHYSICAL: DATE OF ADMISSION: 05/13/18 ADMITTING DIAGNOSES: Bilateral renal calculi. PLANNED PROCEDURE: Shock wave lithotripsy of left renal calculus and cystoscopy and right stent removal. HISTORY OF PRESENT ILLNESS: Vandana Burgos is a 57-year-old lady with history of bilateral renal calculi. She had previously undergone treatment of right sided calculi and is now being brought in for shock wave lithotripsy of her left renal calculus and right stent removal. PAST MEDICAL HISTORY: Significant for renal calculi. MEDICATIONS: None. ALLERGIES: No known drug allergies. REVIEW OF SYSTEMS: There is no history of diabetes or any other major systemic illness. She is in excellent health. She denies any chest pain or shortness of breath. PHYSICAL EXAMINATION GENERAL: Pleasant healthy-appearing lady. VITAL SIGNS: Blood pressure is 122/82, pulse 75 per minute. LUNGS: Clear bilaterally. CARDIOVASCULAR: Regular rate and rhythm. S1, S2. ABDOMEN: Soft with mild bilateral flank tenderness. PLAN/RECOMMENDATIONS: Shock wave lithotripsy of left renal calculus and right stent removal. [id number]/[facility] #: [id number] MTDD
[~2018-05-13 08:56] MED LIST changes: -Acetaminophen TAB* 325 MG PO PRN; -Buffered Lidocaine 0.9% SYRIN* 5 ML/SYR SYRINGE INTRADERM ONE; -DiMENhydriNATE IV* 50 MG/ML VIAL IV PUSH PRN; -Gentamicin ADULT (*) 160 MG in NS 0.9% 100 ML* 100 ML IVPB ONE; -HYDROcodone/ACETAMIN 5-325 MG* 1 TAB PO PRN; +Lactated Ringers 1000 ML Bag* 1,000 ML IV SCH; +Lidocaine 2% PF * 5 ML VIAL ONE; +Ondansetron INJ* 2 MG/ML VIAL ONE; -PROCHLORPERAZINE INJ 5 MG/ML 2 ML VIAL IV PRN; +Propofol* 10 MG/ML 20 ML BTL ONE; +Sodium Citrate/Citric Acid* 15 ML UDC ONE; +Sodium Citrate/Citric Acid* 15 ML UDC PO ONE; +cefTRIAXone(*) 2 GM ADDV.VIAL IVPB ONE; -diPHENhydraMINE IV* 50 MG/ML 1 ml VIAL (BENADRYL) IV PRN; +fentaNYL* 50 MCG/ML 2 ML VIAL (100 MCG VIAL) ONE
[2018-05-13 13:59] VITALS: BP 144/87
--- NOTE | 2018-05-13 14:03 | OP ---
CC: Dr. Mayorga * DATE OF OPERATION: 05/13/18 - [facility] DATE OF : 64 SURGEON: Pratik Perales MD ANESTHESIOLOGIST: Dr. Perez. ANESTHESIA: General. PRE-OP DIAGNOSIS: Bilateral renal calculi. POST-OP DIAGNOSIS: Bilateral renal calculi. OPERATIVE PROCEDURE: 1. Shockwave lithotripsy, left renal calculus. 2. Cystoscopy, right stent removal. INDICATIONS: Vandana Burgos is a 57-year-old lady with a history of bilateral renal calculi. She had previously undergone treatment for right- sided calculi and is now being brought in for shockwave lithotripsy of left renal calculi and right stent removal. COMPLICATIONS: None. POSTOPERATIVE CONDITION: Stable. DESCRIPTION OF PROCEDURE: After induction of general anesthesia, the patient was placed on the lithotripsy table in supine position. The 6 to 7 mm calculus in the mid to lower pole area of the left kidney was localized using fluoroscopy. Shockwave lithotripsy was commenced at a rate of 60 shocks per minute. After the initial 300 shocks, there was a brief pause in lithotripsy for several minutes in an effort to minimize any potential trauma to the kidney. Lithotripsy was then resumed and a total of 1600 shocks were administered with good fragmentation noted. Next, the patient was placed in dorsal lithotomy position. Cystoscopy was performed. The stent was seen exiting from the right orifice and was removed intact without difficulty. The bladder was emptied. The patient tolerated the procedure satisfactorily and was transferred back to the recovery area in stable condition. [id number]/[facility] #: [id number] MTDD
== END | disposition home or self-care (01) ==
LOC: OR 08:56
PROVIDERS: ATTEND Urology
DX: N20.0 Calculus of kidney (principal); Z68.32 Body mass index [BMI] 32.0-32.9, adult
CPT/HCPCS: 74018; A9270-GY; J0696; J2405; J2704; J3010

== ENCOUNTER → 2018-09-25 08:02 | Day surgery (SDC) | payer BC ==
--- NOTE | 2018-09-24 11:26 | HP ---
CC: Dr. Mayorga * ADMITTING HISTORY AND PHYSICAL: DATE OF ADMISSION: 09/25/18 ADMITTING DIAGNOSES: 1. Right hydronephrosis. 2. Calculus, right proximal ureter. PLANNED PROCEDURE: Right ureteroscopy, possible laser, and stent insertion. SURGEON: Dr. Perales. HISTORY OF PRESENT ILLNESS: Vandana Burgos is a 58-year-old lady with a history of recurrent right renal and ureteral calculi and partial right ureteropelvic junction obstruction. She was recently noted on ultrasound to have mild to moderate left hydronephrosis with what appears to be multiple calculi in the right proximal ureter, although on CT scan only one definite calculus was noted. She is now being brought in for further evaluation and management of the same. PAST MEDICAL HISTORY: Significant for recurrent renal calculi. MEDICATIONS ON ADMISSION: None. ALLERGIES: No known drug allergies. FAMILY HISTORY: Negative for stones. SOCIAL HISTORY: Smoking history, she is a nonsmoker. REVIEW OF SYSTEMS: She is otherwise in excellent health. There is no history of diabetes mellitus or any other major systemic illness. PHYSICAL EXAMINATION GENERAL: Reveals a pleasant middle-aged lady. VITAL SIGNS: Blood pressure is 120/74, pulse 74 per minute and regular, temperature 97, and oxygen saturation 97% on room air. LUNGS: Clear bilaterally. CARDIOVASCULAR EXAM: Regular rate and rhythm. S1 and S2. ABDOMEN: Soft with mild right flank tenderness. IMPRESSION: A 58-year-old lady with right hydronephrosis and at least one calculus in the right proximal ureter, possibly two. Planned procedure is right ureteroscopy, possible laser, and stent insertion. [id number]/[facility] #: [id number] [facility]
[~2018-09-25 08:02] MED LIST changes: +Buffered Lidocaine 1% SYRIN* 1 ML/SYRINGE INTRADERM ONE; +Dexamethasone IV* 4 MG/ML 1 ML (4 MG) ONE; +EPHEDrine (Pressors)* 50 MG/ML VIAL ONE; +Furosemide IV* 10 MG/ML 2 ML VIAL (20 MG) ONE; +Iohexol 180 (CONTRAST) 10 ML SDV IV ONE; +Metoclopramide IV* 5 MG/ML 2 ML VIAL ONE; +Midazolam* 1 MG/ML 2 ML VIAL (2 MG) ONE; -Naloxone* 0.4 MG/ML 1 ML VIAL IV PRN; -Ondansetron INJ* 2 MG/ML VIAL IV PRN; -Sodium Citrate/Citric Acid* 15 ML UDC ONE; -Sodium Citrate/Citric Acid* 15 ML UDC PO ONE; -fentaNYL* 50 MCG/ML 2 ML VIAL (100 MCG VIAL) IV PRN
[2018-09-25 11:42] VITALS: BP 138/74
--- NOTE | 2018-09-25 13:05 | OP ---
CC: Dr. Mayorga * DATE OF OPERATION: 09/25/18 - [facility] DATE OF : 64 SURGEON: Pratik Perales MD ANESTHESIOLOGIST: Dr. Grier. ANESTHESIA: General. PRE-OP DIAGNOSES: 1. Right hydronephrosis. 2. Calculus, right proximal ureter. POST-OP DIAGNOSES: 1. Right hydronephrosis. 2. Calculus, right proximal ureter OPERATIVE PROCEDURE: 1. Cystoscopy. 2. Right retrograde pyelogram. 3. Right ureteroscopy and stone extraction. 4. Right pyeloscopy. COMPLICATIONS: None. INDICATIONS: Vandana Burgos is a 58-year-old lady with a history of recurrent renal and ureteral calculi and a partial right ureteropelvic junction obstruction. OPERATIVE FINDINGS: Approximately 4 mm calculus in right proximal ureter, just below ureteropelvic junction with mild narrowing of the ureteropelvic junction noted. DESCRIPTION OF PROCEDURE: After induction of general anesthesia, the patient was placed in dorsal lithotomy position. Sequential compression devices were in place and functioning. Initial cystoscopy revealed a normal-appearing bladder. A guidewire was introduced into the right ureter. Retrograde pyelogram revealed mild right hydronephrosis. A 6-Macedonian semi-rigid ureteroscope was introduced and advanced under direct vision. In the proximal ureter, just below the ureteropelvic junction, there was an approximately 4 mm calculus adherent to the lining of the ureter on the medial aspect. This was engaged with a 3-prong grasper and removed. Next, the ureteroscope was advanced into the kidney. There was mild narrowing of the ureteropelvic junction, but nothing that would require dilatation. Pyeloscopy was performed. I did not visualize any additional calculi within the right kidney. Since the procedure was fairly atraumatic, I elected not to leave a stent behind and clear urine was seen effluxing from the right orifice freely at the end of the procedure. She has had previous stone analysis, so the stone was not sent for analysis and visually had the appearance of a calcium oxalate calculus. The patient tolerated the procedure satisfactorily and was transferred back to the recovery area in stable condition. [id number]/[facility] #: [id number] [facility]
== END | disposition home or self-care (01) ==
LOC: OR 08:02
PROVIDERS: ATTEND Urology
DX: N13.2 Hydronephrosis with renal and ureteral calculous obstruction (principal); Z87.442 Personal history of urinary calculi
CPT/HCPCS: 74420; J0696; J1100; J1940; J2250; J2405; J2704; J2765; J3010